=== PATIENT | male | born 1975 | race Caucasian/White ===

== ENCOUNTER 2019-03-02 13:52 | Emergency (ER) | payer SELFPAY ==
[~2019-03-02] VITALS: Ht 182.9 cm; Wt 79.4 kg
[2019-03-02 14:40] LABS: BASO % 1 % (0-3); EOS # 0.1 x10^3/uL (0.0-0.7); EOS % 2 % (0-3); HEMATOCRIT 37.9 % (39.0-53.0); HEMOGLOBIN 13.4 g/dL (13.0-17.5); LYMPH # 1.4 x10^3/uL (1.0-4.8); LYMPH % 31 % (24-48); MEAN CORPUSCULAR HEMOGLOBIN 36 pg (25-35); MEAN CORPUSCULAR HGB CONC 35 g/dL (31-37); MEAN CORPUSCULAR VOLUME 101 fL (79-100); MONO # 0.4 x10^3/uL (0.0-1.1); MONO % 9 % (0-9); NEUT # 2.5 x10^3uL (1.8-7.7); NEUT % 57 % (31-73); PLATELET COUNT 200 x10^3/uL (140-400); RED BLOOD COUNT 3.75 x10^6/uL (4.30-5.70); RED CELL DISTRIBUTION WIDTH 13.5 % (11.5-14.5); WHITE BLOOD COUNT 4.4 x10^3/uL (4.0-11.0)
--- NOTE | 2019-03-02 14:47 | RAD ---
EXAM: CHEST 1 VIEW History: Bilateral lower extremity edema COMPARISON: None available. TECHNIQUE: Single portable radiograph of the chest FINDINGS: The cardiac silhouette is unremarkable. The lungs are clear bilaterally. The costophrenic sulci are clear and well demarcated. IMPRESSION: No radiographic evidence of an acute cardiopulmonary process. Electronically signed by: Uzair Mukherjee MD (03/02/2019 2:44 PM) [place] [id number]
--- NOTE | 2019-03-02 14:51 | RAD ---
Examination: Bilateral lower extremity edema Lower Extremity Venous Doppler Ultrasound History: pain Comparison: None Procedure: Herrera scale, color flow 2D and spectal waveform analysis images are obtained with and without compression in the area of the common femoral vein, superficial femoral vein - femoral vein junction, main femoral vein (superficial femoral vein) and popliteal vein. Veins of the proximal calf are also imaged. Findings: There is normal duplex flow, color flow and compressibility of all visualized vein segments. No evidence of deep venous thrombus is present. Impression: No evidence of DVT in the visualized bilateral lower extremity venous system. Electronically signed by: Uzair Mukherjee MD (03/02/2019 2:48 PM) [place] [id number]
[2019-03-02 14:55] LABS: BILIRUBIN,URINE NEGATIVE (NEG); CLARITY,URINE CLEAR; COLOR,URINE YELLOW; NITRITE,URINE NEGATIVE (NEG); PH,URINE 5.5; PROTEIN,URINE NEGATIVE (NEG-TRACE); UROBILINOGEN,URINE 0.2 mg/dL (0.2 mg/dL)
[2019-03-02 14:56] LABS: CALCIUM 8.5 mg/dL (8.5-10.1); CREATININE 0.7 mg/dL (0.7-1.3); GFR 122.5; POTASSIUM 3.7 mmol/L (3.5-5.1)
--- NOTE | 2019-03-02 15:00 | EKG ---
[facility] [address] [place] [address] Test Date: 2019-03-02 Test Time: 14:43:29 Pat Name: LEXUS BECK Department: Room: Gender: M [employer]: : 1975 Requested By: RODRÍGUEZ ROSAS Order Number: [id number] Reading MD: Measurements Intervals [place] Rate: 87 P: -2 OR: 176 QRS: 57 QRSD: 82 T: 53 QT: 354 QTc: 432 Interpretive Statements SINUS RHYTHM OTHERWISE NORMAL ECG RI6.01 No previous ECG available for comparison
[2019-03-02 15:03] LABS: ALBUMIN 3.4 g/dL (3.4-5.0); MAGNESIUM 1.6 mg/dL (1.8-2.4); TOTAL BILIRUBIN 0.4 mg/dL (0.2-1.0); TOTAL PROTEIN 6.9 g/dL (6.4-8.2)
[2019-03-02 15:08] LABS: BACTERIA,URINE 0 /HPF (0-FEW); HYALINE CASTS, URINE FEW /HPF; RBC,URINE 0 /HPF (0-2); WBC,URINE 0 /HPF (0-4)
[2019-03-02 15:12] LABS: CREATINE KINASE 82 U/L (39-308)
[2019-03-02 15:13] LABS: AMPHETAMINE/METHAMPHETAMINE NEG (NEG); BARBITURATES NEG (NEG); BENZODIAZEPINES POS (NEG); CANNABINOIDS NEG (NEG); COCAINE NEG (NEG); METHADONE NEG (NEG); OPIATES NEG (NEG); PHENCYCLIDINE NEG (NEG)
[2019-03-02] MEDS ORDERED: FUROSEMIDE 40 MG/4 ML VIAL. IVP ONE (16:00)
--- NOTE | 2019-03-02 16:23 | PHYS DOC ---
Past Medical History Past Medical History: Hypertension Past Surgical History: No Surgical History Alcohol Use: Occasionally Drug Use: None Adult General Chief Complaint Chief Complaint: LOWER EXTREMITY SWELLING HPI HPI Patient is a 43 year old male with history of hypertension-not on medication who presents today complaining of edema to bilateral lower extremities. Patient states this is a chronic issue that has happened multiple times before he states he usually has to be put on a water pill which resolves the situation. Denies any chest pain, shortness of breath. Denies any recent hospitalization, denies any recent long air travel. Review of Systems Review of Systems Constitutional: Denies fever or chills [] Eyes: Denies change in visual acuity, redness, or eye pain [] HENT: Denies nasal congestion or sore throat [] Respiratory: Denies cough or shortness of breath [] Cardiovascular: No additional information not addressed in HPI [] GI: Denies abdominal pain, nausea, vomiting, bloody stools or diarrhea [] : Denies dysuria or hematuria [] Musculoskeletal: Reports bilateral lower extremity swelling Integument: Denies rash or skin lesions [] Neurologic: Denies headache, focal weakness or sensory changes [] All other systems were reviewed and found to be within normal limits, except as documented in this note. Current Medications Current Medications Current Medications Medications (Trade) Dose Ordered Sig/[facility] Start Time Stop Time Status Last Admin Dose Admin Furosemide (Lasix) 40 mg 1X ONCE 03/02/19 16:00 03/02/19 16:01 DC 03/02/19 15:54 40 MG Allergies Allergies Allergies Coded Allergies Type Severity Reaction Last Updated Verified No Known Drug Allergies 03/02/19 No Physical Exam Physical Exam Constitutional: Well developed, well nourished, no acute distress, non-toxic appearance. [] HENT: Normocephalic, atraumatic, bilateral external ears normal, oropharynx moist, no oral exudates, nose normal. [] Eyes: PERRLA, EOMI, conjunctiva normal, no discharge. [] Neck: Normal range of motion, no tenderness, supple, no stridor. [] Cardiovascular:Heart rate regular rhythm, no murmur [] Lungs & Thorax: Bilateral breath sounds clear to auscultation [] Abdomen: Bowel sounds normal, soft, no tenderness, no masses, no pulsatile masses. [] Skin: Warm, dry, no erythema, no rash. [] Back: No tenderness, no CVA tenderness. [] Extremities: No tenderness, no cyanosis, no clubbing, ROM intact, +2 bilateral pedal pulses, +2 bilateral pedal edema. Negative bilateral Homans sign. Neurologic: Alert and oriented X 3, normal motor function, normal sensory function, no focal deficits noted. [] Psychologic: Appears intoxicated, smells of alcohol. Current Patient Data Vital Signs Vital Signs Date Time Temp Pulse Resp B/P (MAP) Pulse Ox O2 Delivery O2 Flow Rate FiO2 03/02/19 13:58 98.6 92 18 143/77 (99) 96 Room Air 98.6 Lab Values Laboratory Tests Test 03/02/19 14:25 03/02/19 14:45 White Blood Count 4.4 x10^3/uL (4.0-11.0) Red Blood Count 3.75 x10^6/uL (4.30-5.70) L Hemoglobin 13.4 g/dL (13.0-17.5) Hematocrit 37.9 % (39.0-53.0) L Mean Corpuscular Volume 101 fL (79-100) H Mean Corpuscular Hemoglobin 36 pg (25-35) H Mean Corpuscular Hemoglobin Concent 35 g/dL (31-37) Red Cell Distribution Width 13.5 % (11.5-14.5) Platelet Count 200 x10^3/uL (140-400) Neutrophils (%) (Auto) 57 % (31-73) Lymphocytes (%) (Auto) 31 % (24-48) Monocytes (%) (Auto) 9 % (0-9) Eosinophils (%) (Auto) 2 % (0-3) Basophils (%) (Auto) 1 % (0-3) Neutrophils # (Auto) 2.5 x10^3uL (1.8-7.7) Lymphocytes # (Auto) 1.4 x10^3/uL (1.0-4.8) Monocytes # (Auto) 0.4 x10^3/uL (0.0-1.1) Eosinophils # (Auto) 0.1 x10^3/uL (0.0-0.7) Basophils # (Auto) 0.0 x10^3/uL (0.0-0.2) Prothrombin Time 12.0 SEC (11.7-14.0) Prothrombin Time INR 0.9 (0.8-1.1) Sodium Level 140 mmol/L (136-145) Potassium Level 3.7 mmol/L (3.5-5.1) Chloride Level 104 mmol/L (98-107) Carbon Dioxide Level 24 mmol/L (21-32) Anion Gap 12 (6-14) Blood Urea Nitrogen 8 mg/dL (8-26) Creatinine 0.7 mg/dL (0.7-1.3) Estimated GFR (Cockcroft-Gault) 122.5 BUN/Creatinine Ratio 11 (6-20) Glucose Level 116 mg/dL (70-99) H Calcium Level 8.5 mg/dL (8.5-10.1) Magnesium Level 1.6 mg/dL (1.8-2.4) L Total Bilirubin 0.4 mg/dL (0.2-1.0) Aspartate Amino Transferase (AST) 37 U/L (15-37) Alanine Aminotransferase (ALT) 34 U/L (16-63) Alkaline Phosphatase 71 U/L (46-116) Creatine Kinase 82 U/L (39-308) Creatine Kinase MB (Mass) 0.9 ng/mL (0.0-3.6) Creatine Kinase MB Relative Index 1.1 % (0-4) Troponin I Quantitative < 0.017 ng/mL (0.000-0.055) RV-Bvx-D-Type Natriuretic Peptide < 5 pg/mL (0-124) Total Protein 6.9 g/dL (6.4-8.2) Albumin 3.4 g/dL (3.4-5.0) Albumin/Globulin Ratio 1.0 (1.0-1.7) Lipase 289 U/L (73-393) Urine Collection Type Unknown Urine Color Yellow Urine Clarity Clear Urine pH 5.5 Urine Specific [place] 1.010 Urine Protein Negative mg/dL (NEG-TRACE) Urine Glucose (UA) Negative mg/dL (NEG) Urine Ketones (Stick) Negative mg/dL (NEG) Urine Blood Negative (NEG) Urine Nitrite Negative (NEG) Urine Bilirubin Negative (NEG) Urine Urobilinogen Dipstick 0.2 mg/dL (0.2 mg/dL) Urine Leukocyte Esterase Negative (NEG) Urine RBC 0 /HPF (0-2) Urine WBC 0 /HPF (0-4) Urine Bacteria 0 /HPF (0-FEW) Urine Hyaline Casts Few /HPF Urine Mucus Slight /LPF Urine Opiates Screen Neg (NEG) Urine Methadone Screen Neg (NEG) Urine Barbiturates Neg (NEG) Urine Phencyclidine Screen Neg (NEG) Urine Amphetamine/Methamphetamine Neg (NEG) Urine Benzodiazepines Screen Pos (NEG) Urine Cocaine Screen Neg (NEG) Urine Cannabinoids Screen Neg (NEG) Urine Ethyl Alcohol Pos (NEG) Laboratory Tests 03/02/19 14:25 Laboratory Tests 03/02/19 14:25 EKG EKG Interpreted by Nilo Hung sinus rhythm HR 87 no STEMI[] Radiology/Procedures Radiology/Procedures []PROCEDURE: VENOUS LOWER EXT BILATERAL Examination: Bilateral lower extremity edema Lower Extremity Venous Doppler Ultrasound History: pain Comparison: None Procedure: Herrera scale, color flow 2D and spectal waveform analysis images are obtained with and without compression in the area of the common femoral vein, superficial femoral vein - femoral vein junction, main femoral vein (superficial femoral vein) and popliteal vein. Veins of the proximal calf are also imaged. Findings: There is normal duplex flow, color flow and compressibility of all visualized vein segments. No evidence of deep venous thrombus is present. Impression: No evidence of DVT in the visualized bilateral lower extremity venous system. Electronically signed by: Uzair Mukherjee MD (03/02/2019 2:48 PM) [place] [id number] DICTATED and SIGNED BY: UZAIR MUKHERJEE MD DATE: 03/02/19 1442 PROCEDURE: PORTABLE CHEST 1V EXAM: CHEST 1 VIEW History: Bilateral lower extremity edema COMPARISON: None available. TECHNIQUE: Single portable radiograph of the chest FINDINGS: The cardiac silhouette is unremarkable. The lungs are clear bilaterally. The costophrenic sulci are clear and well demarcated. IMPRESSION: No radiographic evidence of an acute cardiopulmonary process. Electronically signed by: Uzair Mukherjee MD (03/02/2019 2:44 PM) [place] [id number] DICTATED and SIGNED BY: UZAIR MUKHERJEE MD DATE: 03/02/19 4241 Course & Med Decision Making Course & Med Decision Making Pertinent Labs and Imaging studies reviewed. (See chart for details) This is a 43-year-old female patient presenting to the ED today with bilateral lower extremity swelling for 5 days. Patient states his had this swelling before and was given a water pill which got rid of the swelling. He has history of hypertension on not on medication. He appears drunk. He admits to using alcohol. Refusing to get help. Venous Doppler bilateral lower extremities are negative. EKG was negative, Hemoglobin and hematocrit appears normal patient states this is normal. CMP with normal creatinine and BUN. Magnesium 1.6. Chest x-ray is negative for any acute findings. Urine analysis is negative for infection, urine drug screen noted for alcohol and benzodiazepines. Vitals on arrival to the ED temperature 98.6 heart rate 92 respiration 20 room air blood pressure 143/77 O2 sats 96% on room air. Patient has significant swelling to bilateral lower extremities, offered him a dmission, he is completely refused. He states last and they gave him a water pill and this cleared out. He requesting the same. Given furosemide in the Ed. encouraged to get compression stockings and wetting. Encouraged to elevate bilateral lower extremities. D/c on Furosemide for 20 mg for 3 days. F/u with PcP as soon as he can. Dragon Disclaimer Dragon Disclaimer This electronic medical record was generated, in whole or in part, using a voice recognition dictation system. Departure Departure Impression: Primary Impression: Edema Additional Impression: ETOH abuse Disposition: 01 HOME, SELF-CARE Condition: STABLE Referrals: UNKNOWN PCP NAME (PCP) Please follow-up with your primary care doctor. Patient Instructions: Alcohol Intoxication, Peripheral Edema Additional Instructions: You were evaluated in the medicine for swelling to bilateral lower extremities. We gave you a water pill for 3 days, take it as prescribed. Consider wearing compression stockings, consider elevating bilateral lower extremities above your heart when resting, considering getting help for alcohol use. Scripts Furosemide (FUROSEMIDE) 20 Mg Tablet 1 TAB PO DAILY, #3 TAB 0 Refills Prov: RODRÍGUEZ ROSAS LUCIO 03/02/19 Problem Qualifiers Primary Impression: Edema Edema type: localized Qualified Codes: R60.0 - Localized edema RODRÍGUEZ ROSAS OBJECT ORIENTED DEVELOPER Mar 02, 2019 16:23
[2019-03-02 16:30] VITALS: BP 117/82
[2019-03-02] MEDS ORDERED: FURO20TA3 PO (16:42)
== END 2019-03-02 16:58 | disposition home or self-care (01) ==
LOC: ER 13:52
DX: R60.0 Localized edema (principal); F10.129 Alcohol abuse with intoxication, unspecified; Y90.9 Presence of alcohol in blood, level not specified; I10 Essential (primary) hypertension
CPT/HCPCS: 36415; 71045; 80053; 80307; 81001; 82553; 83690; 83735; 83880; 84484; 85025; 85610; 93005; 93970; 96374; 99285; J1940